=== PATIENT | male | born 1955 | race Caucasian/White ===

== ENCOUNTER 2022-02-13 09:52 | Outpatient (CLI) | payer MEDICARE, OTHER, SELFPAY ==
[2022-02-13 10:27] LABS: Hematocrit 39.3 % (42.0-52.0); Hemoglobin 13.3 g/dL (14.0-18.0); Mean Corpuscular HGB Conc 33.8 g/dl (32-36); Mean Corpuscular Volume 91.6 fl (80-100); Mean Platelet Volume 9.7 fl (7.4-10.4); Platelet Count Result 231 k/mm3 (150-375); Red Blood Count 4.29 M/mm3 (4.6-6.20); White Blood Count 6.7 K/mm3 (4.5-10.0)
[2022-02-13 10:37] LABS: Anion Gap 9 mmol/L (8-16); Blood Urea Nitrogen 11 mg/dL (9-20); Calcium 8.9 mg/dL (8.4-10.2); Carbon Dioxide 25 mmol/L (22-30); Chloride 106 mmol/L (98-107); Estimated Glomerular Filt Rate > 60; Glucose 131 mg/dL (65-110); Sodium 140 mmol/L (137-145)
== END 2022-02-13 09:53 | disposition home or self-care (01) ==
LOC: ANHSURGERY 10:00
PROVIDERS: Anesthesiology; PCP Family Medicine; Visit Provider Neurological Surgery
DX: Z01.812 Encounter for preprocedural laboratory examination (principal); M48.061 Spinal stenosis, lumbar region without neurogenic claudication; E11.9 Type 2 diabetes mellitus without complications
CPT/HCPCS: 36415; 80048; 85025

== ENCOUNTER 2022-02-20 14:33 | Inpatient (IN) | payer MEDICARE, OTHER, SELFPAY ==
[2022-02-08 13:23] VITALS: BMI 45.7
--- NOTE | 2022-02-08 13:52 | PC.NURSE ---
Report to the Outpatient Waiting Room, entrance under the green pavilion located off [facility], at time _0600_ on date _02/20/22_. OR Time: _0730_. - You and your visitor will be asked a series of questions to screen for COVID 19 for your protection. - Only one visitor is allowed at this time. - The patient visitor is requested to leave or wait in car when not with patient. - A mask is required within the hospital. Patients may have clear liquids (water, carbonated beverages, clear teas, apple juice) until 3 hours prior to surgery (0430 AM) with a maximum of 20 ounces. - No food from midnight until time of surgery Take the following medications with a SIP of water the morning of surgery: _CARVEDILOL, GABAPENTIN, PROPRANOLOL_ Medications to discontinue per DR. COY - PT STATES ALREADY STOPPING ASPIRIN AND PLAVIX ON 02/07/22 Please no make-up, nail gibraltarian, hairspray, perfume, deodorant, or body powder the day of surgery. No jewelry (including any body piercings) or valuables the day of surgery, leave them at home. Please take a shower or bath the night before, or the morning of, surgery with an antibacterial soap. Wear comfortable, loose fitting clothing. - Jewelry must be removed prior to entering the operating room. Rings and piercings that are not removed may be cut off. - The hospital will not accept responsibility for valuables. - Please leave all valuables, including medications, at home the day of surgery. If you are going home after surgery, a licensed fork truck driver must drive you home. - NO public transportation without another adult. - We recommend that an adult stay with you for 24 hours following discharge. - We also recommend that you do not drive, make important decision, drink alcoholic beverages, or take any drugs that were not prescribed by your health care provider for at least 24 hours after your discharge time. Follow any additional instructions given to you from your surgeon. If you or anyone in your household have experienced Covid symptoms in the past week, please notify your surgeon or the nurse liaison at the phone number below for possible testing. Telephone instructions given to ___PT and asked if any additional questions and then verbalized understanding. Patient advised to call surgeon office or pre surgery nurse liaison [phone] if any additional questions.
[2022-02-20] VITALS (17 sets, daily range): BP systolic 106–138; BP diastolic 55–74; PULSE 53–74; RESP 12–20; TEMP 36–36.7; O2SAT 96–99
--- NOTE | ~2022-02-20 | XR_ITS ---
EXAMINATION: XR fluoroscopy no charge DATE: 02/20/2022 7:30 CDT INDICATION: LUMBAR INTERBODY FUSION . TECHNIQUE: 2 fluoroscopic images of the lumbar spine were obtained during lumbar interbody fusion per formed by the surgeon. I was not present in the operating room. Fluoroscopy exposure time was 8.1 sec onds. Cumulative dose was 7.85 mGy. COMPARISON: None FINDINGS: Initial images document localization of the spinous process of a lumbar vertebral body, more inferior pedicle screws and skin retractors overlying the image. Pedicle screws then added at 2 additional le vels. IMPRESSION: Fluoroscopic documentation of lumbar interbody fusion. Please refer to the operative note for complet e procedural details. Reviewed, dictated and finalized at location K. IMPRESSION: Fluoroscopic documentation of lumbar interbody fusion. Please refer to the oper ative note for complete procedural details.
--- NOTE | ~2022-02-20 | CT_ITS ---
EXAMINATION: CT brain wo con DATE: 02/24/2022 23:48 INDICATION: Somnolent and mental status changes post lumbar fusion TECHNIQUE: Computed tomography (CT) of the head was performed without intravenous contrast. Sagittal and coronal reconstructions were performed. The mA was adjusted according to patient size. Iterative reconstruction technique was employed. The dose-length product was 681.00 mGy-cm. COMPARISON: None FINDINGS: No acute intracranial hemorrhage, acute infarction or abnormal extra axial fluid collection. Symmetri c prominence of the sulci and subarachnoid spaces overlying the convexities consistent with mild age- appropriate diffuse cerebral volume loss. Ventricles are normal and symmetric. No mass/mass effect. Mild mucoperiosteal thickening in the bilateral ethmoid and maxillary sinuses. The orbits and mastoid air cells are normal. IMPRESSION: 1. Normal aging brain. No acute intracranial process. Reviewed, dictated and finalized at location A.
--- NOTE | ~2022-02-20 | CT_ITS ---
EXAMINATION: CTA chest PE protocol DATE: 02/24/2022 23:49 INDICATION: Shortness of breath. Somnolence. TECHNIQUE: Computed tomography (CT) pulmonary angiogram of the chest was performed with 100 mL Omnipa que-350 intravenous contrast. Additional 3D reconstructions utilizing coronal maximum intensity proje ction (MIP) were performed. Automated exposure control and iterative reconstruction technique were em ployed. The dose-length product was 949.14 mGy-cm. COMPARISON: None FINDINGS: Suboptimal contrast opacification of the pulmonary arteries. There along with combination of streak a nd moderate scattered respiratory motion artifact significantly limits evaluation in the segmental an d subsegmental pulmonary arteries. No central pulmonary embolism through the lobar arteries. No pneum onia, pulmonary edema, pleural effusion or pneumothorax. Heart size is normal. No pericardial effusio n. Atherosclerotic coronary artery calcifications and possible stenting. Ectatic ascending thoracic a lucia measuring up to 4.0 cm in maximal diameter. No dissection. Mediastinal lipomatosis. No pathologi inessa enlarged thoracic lymphadenopathy. Diffuse hepatic steatosis. Cholecystectomy clips at the gall bladder fossa. There are bridging osteophytes at multiple levels in the spine, consistent with diffus e idiopathic skeletal hyperostosis (DISH). IMPRESSION: 1. No central pulmonary embolism through the lobar pulmonary arteries. More peripheral evaluation is essentially nondiagnostic due to suboptimal contrast bolus and combination of posttreatment and moder ate respiratory motion artifact. No other acute cardiopulmonary disease. Reviewed, dictated and finalized at location A. IMPRESSION: 1. No central pulmonary embolism through the lobar pulmonary arteries. More per ipheral evaluation is essentially nondiagnostic due to suboptimal contrast bolu s and combination of posttreatment and moderate respiratory motion artifact. No other acute cardiopulmonary disease.
--- NOTE | 2022-02-20 06:10 | ECG_ITS ---
Measurements Intervals Dresser Rate: 54 P: GA: 0 QRS: 59 QRSD: 98 T: 43 QT: 446 QTc: 423 Interpretive Statements SINUS BRADYCARDIA ATRIAL PREMATURE COMPLEXES BORDERLINE ECG Electronically Signed On 02-20-2022 8:01:15 CDT by Ervin Mendez D.O.
--- NOTE | 2022-02-20 06:47 | WPDANESEPPF ---
Anes - Initial Pre Proc Eval Procedure: Operation Date: 02/20/22 07:30 Proposed Procedures p L2-3, L3-4 Posterior Lumbar Interbody Fusion with Revision of Posterior Instrumentation at L5-S1 - Manjit Cavanaugh MD Date/Time: 02/20/22 06:47 Surgeon: Manjit Cavanaugh MD Pre Op Diagnosis: lumbar stenosis,lumbar spondylosis Patient Data Age: 67 Gender: M Height: 1.73 m Weight: 142.4 kg Last Vital Signs Temp 36.3 C L 02/20/22 06:33 Pulse 53 L 02/20/22 06:33 Resp 18 02/20/22 06:33 BP 126/64 02/20/22 06:33 Pulse Ox 97 02/20/22 06:33 O2 Del Method Room Air 02/20/22 06:33 Allergies Allergy/AdvReac Type Severity Reaction Status Date / Time No Known Allergies Allergy Unknown Unverified 02/20/22 05:59 Home Medications Medication Instructions Recorded Confirmed Type aspirin 81 mg capsule 81 mg PO QAM 02/08/22 02/08/22 History atorvastatin 20 mg tablet 1 tablet DAILY 02/08/22 02/20/22 History carvedilol 6.25 mg tablet 6.25 mg PO BID 02/08/22 02/20/22 History clopidogrel 75 mg tablet 1 tablet QA 02/08/22 02/08/22 History fenofibrate 160 mg tablet 1 tablet QAM 02/08/22 02/20/22 History gabapentin 300 mg capsule 600 mg TID 02/08/22 02/20/22 History insulin aspart U-100 100 unit/mL See Rx Instructions .Route .COMPLEX 02/08/22 02/20/22 History (3 mL) subcutaneous pen (Novolog Flexpen U-100 Insulin aspart) insulin detemir U-100 100 unit/mL See Rx Instructions .Route .COMPLEX 02/08/22 02/20/22 History (3 mL) subcutaneous pen (Levemir FlexTouch U-100 Insulin) lisinopril 20 mg tablet 1 tablet QAM 02/08/22 02/20/22 History metformin 500 mg tablet 2 tablet BID 02/08/22 02/20/22 History propranolol 20 mg tablet 2 tablet BID 02/08/22 02/20/22 History silodosin 4 mg capsule 1 cap QAM 02/08/22 02/20/22 History Patient hx anesthesia problems: none Family hx anesthesia problems: none Results Review: All pre-operative results and documents have been reviewed as part of the pre-operative evaluation. [facility] Past Medical History Medical History (Updated 02/20/22 @ 06:56 by Willis Piper MD) CAD (coronary artery disease) Diabetes HTN (hypertension) Hyperlipidemia Morbid obesity with BMI of 45.0-49.9, adult RAMESH on CPAP Osteoarthritis Peripheral neuropathy Surgical History Surgical History (Updated 02/20/22 @ 06:56 by Willis Piper MD) History of coronary artery stent placement Social History Social History Smoking status: Never smoker Second hand tobacco smoke exposure: No Alcohol intake: never Substance use: never Substance use type: does not use Living arrangements: with family Spiritual care concerns: No Anes - Eval Final PreProcedure Day of Procedure 02/20/22 06:47 Patient weight: morbidly obese Heart: regular rate and rhythm Lungs: clear to auscultation and normal air movement Airway: Mallampati scale class IV Neurological: alert and oriented Last oral intake: >/= 8 hours ASA classification: III Emergent: no Anesthetic plan: proceed Anesthesia type and monitoring: general ETT Results Review: All pre-operative results and documents have been reviewed as part of the pre-operative evaluation. Informed Consent: The patient's anesthetic plan and its attendant risks and benefits were discussed with the patient/family/POA. Questions were solicited and answers provided to the satisfaction of the patient/family/POA.
[2022-02-20 06:51] LABS: Glucose Point of Care 132 mg/dl (65-105)
[2022-02-20] MEDS: LACTATED RINGERS 1,000 ML 30 ML IV CONT ×3 (06:52→13:30)
--- NOTE | 2022-02-20 07:41 | PM.IMHP ---
H&P: HPI History of Present Illness Date/Time: 02/20/22 07:41 Chief Complaint: Back and leg pain Narrative: Jesus is a 67-year-old gentleman with back and leg pain that has undergone an L5-S1 posterior lumbar interbody fusion in the past and presents now for adjacent level L3-4 L4-5 fusion possibly L2-3 for junctional stenosis. He has not changed since we last saw him. He reports no new specific muscle group weakness. He reports no new bowel or bladder difficulty. He reports no new numbness. Review of Systems Review of Systems: Negative on 12 systems except as noted above. Morbid obesity. He denies chest pain, shortness of breath, cough, fever, chills, nausea, vomiting. [facility] Past Medical History Medical History CAD (coronary artery disease) Diabetes HTN (hypertension) Hyperlipidemia Morbid obesity with BMI of 45.0-49.9, adult RAMESH on CPAP Osteoarthritis Peripheral neuropathy Surgical History Surgical History History of coronary artery stent placement Social History Social History Smoking status: Never smoker Second hand tobacco smoke exposure: No Alcohol intake: never Substance use: never Substance use type: does not use Living arrangements: with family Spiritual care concerns: No Meds Home Medications and Allergies Home Medications Medication Instructions Recorded Confirmed Type aspirin 81 mg capsule 81 mg PO QAM 02/08/22 02/08/22 History atorvastatin 20 mg tablet 1 tablet DAILY 02/08/22 02/20/22 History carvedilol 6.25 mg tablet 6.25 mg PO BID 02/08/22 02/20/22 History clopidogrel 75 mg tablet 1 tablet QAM 02/08/22 02/08/22 History fenofibrate 160 mg tablet 1 tablet QAM 02/08/22 02/20/22 History gabapentin 300 mg capsule 600 mg TID 02/08/22 02/20/22 History insulin aspart U-100 100 unit/mL See Rx Instructions .Route .COMPLEX 02/08/22 02/20/22 History (3 mL) subcutaneous pen (Novolog Flexpen U-100 Insulin aspart) insulin detemir U-100 100 unit/mL See Rx Instructions .Route .COMPLEX 02/08/22 02/20/22 History (3 mL) subcutaneous pen (Levemir FlexTouch U-100 Insulin) lisinopril 20 mg tablet 1 tablet QAM 02/08/22 02/20/22 History metformin 500 mg tablet 2 tablet BID 02/08/22 02/20/22 History propranolol 20 mg tablet 2 tablet BID 02/08/22 02/20/22 History silodosin 4 mg capsule 1 cap QAM 02/08/22 02/20/22 History Allergies Allergy/AdvReac Type Severity Reaction Status Date / Time No Known Allergies Allergy Unknown Unverified 02/20/22 05:59 Vital Signs Vital Signs - 24 hr 02/20/22 06:33 Temperature 97.3 F L Pulse Rate 53 L Respiratory Rate 18 Blood Pressure 126/64 Pulse Oximetry 97 Oxygen Delivery Room Air Exam Narrative: The patient is a normally developed obese male supine in the hospital bed in no acute distress. He is awake, alert, oriented x3 with good fund of knowledge recall events and fluent speech. His face is symmetrical and his eyes were conjugate. He has no upper extremity drift, dysmetria or dyspraxia Strength is normal in the bilateral lower extremities in all muscle groups to direct confrontation. Sensation is intact to light touch throughout the lower extremities. Regular rate and rhythm Clear to auscultation Assessment and Plan Assessment and plan (1) Lumbar stenosis: Code(s): M48.061 - Spinal stenosis, lumbar region without neurogenic claudication Status: Acute (2) Lumbar spondylosis: Code(s): M47.816 - Spondylosis without myelopathy or radiculopathy, lumbar region Status: Acute Plan Jesus is a 67-year-old gentleman with back and leg pain related to the above pathology presents for L3-4 and L4-5 posterior lumbar interbody fusion with revision of posterior instrumentation at L5-S1. I again described to him that operation, it
--- NOTE | 2022-02-20 07:45 | WPDHPUPDATE1 ---
History and Physical Update Update Date/Time: 02/20/22 07:45 History and Physical has been reviewed, including an updated exam of the patient. There are NO changes in the patient's condition. Risks, benefits, and alternatives have been discussed and questions answered. Patient agrees to proceed with procedure.
[2022-02-20] MEDS: ceFAZolin 3 GM/D5W 100 ML 100 ML IVPB (08:05)
[2022-02-20] MEDS: LIDOCAINE/EPINEPHRINE 0.5%/1:200,000 50 ML VIAL INFILTRATE (08:40)
[2022-02-20] MEDS: HEMOSTATIC MATRIX (SURGIFLO with THROMBIN) KIT 1 KIT XX ×2 (11:07→11:08)
--- NOTE | 2022-02-20 12:04 | W.PM.PROC2 ---
Procedure Note - Detailed Date of Procedure 02/20/22 Pre-op Diagnosis lumbar stenosis,lumbar spondylosis Post-op Diagnosis Same Procedure Performed L3-4 and L4-5 posterior lumbar interbody fusion, L5-S1 revision of posterior instrumentation Surgeon Manjit Cavanaugh MD Assistant Professor Of Geography Darion Adames General Indications Jesus is a 67-year-old gentleman with back and leg pain related to spondylosis and stenosis who presents for decompression and fusion from a posterior approach at 2 levels adjacent to his previous operation at L5-S1. Findings Stenosis and spondylosis Description of Procedure Jesus was brought to the operating room in the supine position, was sedated, intubated and placed under general anesthesia in routine fashion. He was then turned into the prone position on a Parish frame. The area of operation on his back was examined, marked for incision, prepped and draped in routine sterile fashion. Incision was marked over the previous incision and extended up to the L2 spinous processes. This area was injected with 0.5% lidocaine with [id number] epinephrine. Intravenous antibiotics were given prior to incision. Incision was made with a 10 blade scalpel down to the lumbodorsal fascia. A subperiosteal dissection of the muscle and soft tissue away from the spinous process and lamina at L2-3 for was performed with a subperiosteal elevator and Bovie cautery. The instrumentation at L5-S1 was uncovered using Bovie cautery. A verifying x-rays obtained to verify the level of operation. The L3 and L4 spinous processes were removed with a Aleisha rongeur. Kerrison punches and curved curettes were used to remove bone in the midline and to the soft contents of the canal were encountered. A Midas Nick drill was used to resect the pars bilaterally. The this was done at L3 and L4. The inferior articular process of L3 and L4 could then be removed bilaterally. These post spinous processes were stripped free of soft tissue and morselized for later use as interbody autograft. Kerrison punches and curved curette were used to define a plane with the dura and removed bone and ligament flush with the pedicle and to widely decompress the exiting nerve roots. With the thecal sac retracted and protected the disc space was entered bilaterally at each level using 11 blade scalpel. Scrapers various sizes curettes of ears configurations, pituitary rongeur and a rasp were used to remove as much cartilaginous endplate and disc material as possible down to bleeding cortical flat surfaces on the opposing bones. The disc spaces were incised and 12 mm interbody devices were chosen for L3 for and 13 mm devices for L4-5. These were filled with local autograft bone. The disc space was likewise filled with local autograft bone. The interbody devices were then placed with 2-3 mm countersink within the disc space bilaterally. Pedicle screw instrumentation was performed at L3 and L4 by observing and palpating the pedicle wall a hole was made and superior articular process above the pedicle using a Midas Nick drill. The pedicle was then cannulated with a pedicle probe, checked for continuity with the ball probe, tapped with a 5.5 mm tap and a 6.5 x 50 mm screw was placed into each pedicle on each side. The caps at L5 and S1 removed as well as the timoteo. An 85 mm timoteo was then placed into the screw heads on either side and secured in position using the caps for that purpose. These are definitively tightened with the torque and anti torque device. The verifying x-rays obtained to verify placement of the instrumentation. Good placement was confirmed. The wound was then copiously irrigated with bacitracin irrigation all bleeding stopped with bipolar and Bovie cautery and Gelfoam thrombin powder. A medium Hemovac drain was left in the subfascial position. After the inferior and right of the incision. The wound was then closed in layered fashion with 2-0 Vicryl interrupted sutures in the
[2022-02-20 12:22] LABS: Glucose Point of Care 233 mg/dl (65-105)
[2022-02-20] MEDS: INSULIN HUMAN REGULAR (*BKC) 100 UNITS/ML SUB-Q (12:37)
[2022-02-20] MEDS: fentaNYL CITRATE INJ (*CRX) 100 MCG/2 ML VIAL 25 MCG IV PUSH ×6 (12:43→13:55)
--- NOTE | 2022-02-20 14:50 | ADMGEN ---
This patient, Jesus Early, was admitted to Medical Room 247-. Patient/family oriented to hospital policies and general routines including ID bracelet, bed and alarms, visiting hours, pain management, procedures, bathroom and other care routines, personal items, smoking policy, room service/diet, and visiting hours. Information on how to activate the Rapid Response Team has been discussed. Patient/Family are encouraged to report perceived risks to care and to ask questions if they do not understand what they are told or what they should do.
[2022-02-20] MEDS: GABAPENTIN 300 MG CAPSULE 600 MG BY MOUTH ×2 (15:22→17:40)
[2022-02-20 15:46] LABS: Glucose Point of Care 225 mg/dl (65-105)
--- NOTE | 2022-02-20 15:51 | PCPTNOTE ---
Attempted PT evaluation, Pt refused due to having too much pain. Will follow.
[2022-02-20] MEDS: HYDROmorphone HCL INJ (*CRX) 1 MG/ML SYR 0.5 MG IV PUSH ×2 (15:52→23:43)
--- NOTE | 2022-02-20 16:25 | PC.NURSE ---
Bus And Trolley Dispatcher called Pt [facility] pharmacy and verified pt current diabetes medications, Called and verfied with Dr. Morrow office and requested list of diabetes medication records which was received and placed in pt chart, and verified with Dr. Cavanaugh he wishes for pt to received high dose insulins as pt takes at home, and duplicate beta blockers Dr. Cavanaugh report yes wants medications to continue as pt takes at home newswriter triple verified with pt and current insulin and beta seema regime listed is what pt takes this all was report to pharmacy per there request for further clarifications.
--- NOTE | 2022-02-20 17:03 | PHAR ---
VERIFIED WITH RN LEVEMIR 70 UNITS BID, NOVOLOG 60 UNITS BID (BREAKFAST AND DINNER), PLUS NOVOLOG SLIDING SCALE. RN VERIFIED WITH PATIENT'S MACHINE CAPTAIN
[2022-02-20] MEDS: KCL 20 MEQ/D5/0.45% SOD CHL 1,000 ML 100 ML IV CONT (17:31)
[2022-02-20] MEDS: ONDANSETRON INJ 4 MG/2 ML VIAL IV PUSH (17:32)
[2022-02-20] MEDS: PROPRANOLOL HCL 40 MG TABLET BY MOUTH (17:41)
[2022-02-20] MEDS: metFORMIN HCL 500 MG TABLET 1000 MG BY MOUTH (17:42)
[2022-02-20] MEDS: carvediloL 6.25 MG TABLET PO (17:42)
[2022-02-20] MEDS: INSULIN ASPART (*BKC) 100 UNITS/ML 60 UNITS SUB-Q (17:46)
[2022-02-20] MEDS: HYDROcodone/acetaminophen (*CRX) 10-325 MG TABLET 1 TAB PO (22:04)
[2022-02-20] MEDS: DOCUSATE SODIUM 100 MG CAPSULE PO (22:05)
[2022-02-20] MEDS: INSULIN GLARGINE (*BKC) 100 UNITS/ML 70 UNITS SUB-Q (22:21)
[2022-02-20] MEDS: WATER FOR IRRIGATION, STERILE 1,000 ML BOTTLE 1000 ML (22:22)
[2022-02-20 22:50] LABS: Glucose Point of Care 172 mg/dl (65-105)
[2022-02-21] VITALS (15 sets, daily range): BP systolic 100–133; BP diastolic 42–58; PULSE 68–84; RESP 17–24; TEMP 35.9–37.9; O2SAT 92–96
[2022-02-21 00:46] LABS: Hematocrit 32.6 % (42.0-52.0); Hemoglobin 10.7 g/dL (14.0-18.0)
[2022-02-21] MEDS: HYDROcodone/acetaminophen (*CRX) 5-325 MG TABLET 1 TAB PO (00:57)
[2022-02-21] MEDS: HYDROcodone/acetaminophen (*CRX) 10-325 MG TABLET 1 TAB PO ×4 (03:19→18:36)
[2022-02-21] MEDS: HYDROmorphone HCL INJ (*CRX) 1 MG/ML SYR 0.5 MG IV PUSH (05:07)
[2022-02-21] MEDS: KCL 20 MEQ/D5/0.45% SOD CHL 1,000 ML 30 ML IV CONT ×2 (06:32→13:00)
[2022-02-21 07:23] LABS: Glucose Point of Care 209 mg/dl (65-105)
[2022-02-21] MEDS: INSULIN ASPART (*BKC) 100 UNITS/ML SUB-Q ×3 (07:37→16:42)
[2022-02-21] MEDS: DOCUSATE SODIUM 100 MG CAPSULE PO ×2 (08:45→21:11)
[2022-02-21] MEDS: SENNA/DOCUSATE SODIUM TABLET 1 TAB PO (08:46)
[2022-02-21] MEDS: FENOFIBRATE 160 MG TABLET BY MOUTH (08:46)
[2022-02-21] MEDS: PROPRANOLOL HCL 40 MG TABLET BY MOUTH ×2 (08:46→16:31)
[2022-02-21] MEDS: metFORMIN HCL 500 MG TABLET 1000 MG BY MOUTH ×2 (08:46→16:30)
[2022-02-21] MEDS: lisinopriL 20 MG TABLET BY MOUTH (08:47)
[2022-02-21] MEDS: ATORVASTATIN 20 MG TABLET BY MOUTH (08:47)
[2022-02-21] MEDS: carvediloL 6.25 MG TABLET PO ×2 (08:47→16:29)
[2022-02-21] MEDS: GABAPENTIN 300 MG CAPSULE 600 MG BY MOUTH ×3 (08:47→16:30)
[2022-02-21] MEDS: INSULIN GLARGINE (*BKC) 100 UNITS/ML 70 UNITS SUB-Q ×2 (08:48→21:11)
[2022-02-21] MEDS: INSULIN ASPART (*BKC) 100 UNITS/ML 60 UNITS SUB-Q ×2 (08:48→16:41)
--- NOTE | 2022-02-21 09:20 | WPDPN ---
Progress Note: A&P Assessment and Plan (1) Lumbar spondylosis: Code(s): M47.816 - Spondylosis without myelopathy or radiculopathy, lumbar region Status: Acute (2) Lumbar stenosis: Code(s): M48.061 - Spinal stenosis, lumbar region without neurogenic claudication Status: Acute Plan Jesus is doing well postop day 1 status post L3-4 L4-5 posterior lumbar interbody fusion. He will work with physical and occupational therapy today towards progressive activity. We will try to wean his IV pain medication. I believe his drain in until tomorrow. Subjective Date/time seen: 02/21/22 09:20 The patient Is postop day 1 status post L3-4 and L4-5 posterior lumbar interbody fusion. He is doing well. He has expected soreness in his operative site. He is having no new issues in his lower extremities. He is about to work with physical therapy. Exam Narrative: strength appears to be normal in the bilateral lower extremities direct confrontation in all muscle groups. Sensation is intact to light touch throughout the lower extremities. Dressing is clean dry and intact. Objective Data Vital Signs Vital Signs: Vital Signs - 24 hr 02/20/22 12:13 02/20/22 12:25 02/20/22 12:40 Temperature 98.0 F Pulse Rate 68 62 63 Respiratory Rate 17 12 12 Blood Pressure 111/57 L 106/59 L 121/55 L Pulse Oximetry 97 99 96 Oxygen Delivery Simple Face Mask Simple Face Mask Room Air Oxygen Flow Rate 8 8 02/20/22 12:55 02/20/22 13:10 02/20/22 13:25 Temperature Pulse Rate 59 L 59 L 54 L Respiratory Rate 12 20 20 Blood Pressure 121/67 115/69 116/66 Pulse Oximetry 98 97 98 Oxygen Delivery Nasal Cannula Nasal Cannula Nasal Cannula Oxygen Flow Rate 2 2 2 02/20/22 13:40 02/20/22 13:55 02/20/22 14:10 Temperature Pulse Rate 60 56 L 65 Respiratory Rate 20 16 14 Blood Pressure 127/62 120/63 122/58 L Pulse Oximetry 96 97 98 Oxygen Delivery Nasal Cannula Nasal Cannula Nasal Cannula Oxygen Flow Rate 2 2 2 02/20/22 14:25 02/20/22 14:50 02/20/22 15:05 Temperature 96.8 F L 97.1 F L Pulse Rate 64 74 63 Respiratory Rate 12 18 18 Blood Pressure 115/66 126/61 114/60 Pulse Oximetry 98 97 98 Oxygen Delivery Nasal Cannula Oxygen Flow Rate 2 02/20/22 15:35 02/20/22 16:35 02/20/22 16:37 Temperature 97.8 F 97.8 F Pulse Rate 60 65 Respiratory Rate 16 18 Blood Pressure 121/62 138/74 Pulse Oximetry 96 98 Oxygen Delivery Room Air Oxygen Flow Rate 02/20/22 19:11 02/20/22 23:21 02/21/22 00:35 Temperature 97.1 F L 98.8 F Pulse Rate 63 64 68 Respiratory Rate 17 17 Blood Pressure 127/56 L 133/53 L Pulse Oximetry 98 97 94 Oxygen Delivery CPAP Oxygen Flow Rate 02/21/22 02:40 02/21/22 03:30 02/21/22 03:38 Temperature 98.8 F Pulse Rate 69 84 Respiratory Rate 18 Blood Pressure 100/52 L 108/58 L Pulse Oximetry 95 92 Oxygen Delivery CPAP Oxygen Flow Rate 02/21/22 08:07 02/21/22 08:46 02/21/22 08:47 Temperature Pulse Rate 83 83 Respiratory Rate Blood Pressure Pulse Oximetry Oxygen Delivery Room Air Oxygen Flow Rate 02/21/22 09:02 Temperature Pulse Rate 83 Respiratory Rate Blood Pressure Pulse Oximetry Oxygen Delivery Room Air Oxygen Flow Rate Intake/Output Intake/Output: Intake & Output 02/18/22 02/19/22 02/20/22 02/21/22 23:59 23:59 23:59 23:59 Intake Total 3590 1710 Output Total 400 680 Balance 3190 1030 Meds/Results Medications: Active Medications Generic Name Dose Route Start Last Admin Trade Name Freq PRN Reason Stop Dose Admin Hydrocodone Bitart/Acetaminophen 1 tab 02/20/22 14:33 02/21/22 00:57 Hydrocodone/Acetaminophen (*Crx) 5-325 Mg Tablet PO 1 tab Q4H PRN Administration Mild Pain (1-3) Hydrocodone Bitart/Acetaminophen 1 tab 02/20/22 14:33 02/21/22 07:35 Hydrocodone/Acetaminophen (*Crx) 10-325 Mg Tablet PO 1 tab Q4H PRN Administration Moderate Pain (4-6) Al
--- NOTE | 2022-02-21 10:28 | WPDANESPN ---
Anes - Prog Note Post-Op Date/Time: 02/21/22 10:28 Cardiovascular status: normal Respiratory status: normal Airway patency: baseline Mental status: baseline Post-Op hydration status: normal Vital Signs: Last Vital Signs Temp 37.1 C 02/21/22 03:30 Pulse 83 02/21/22 09:02 Resp 18 02/21/22 03:30 BP 108/58 L 02/21/22 03:38 Pulse Ox 92 02/21/22 03:30 O2 Del Method Room Air 02/21/22 09:02 O2 Flow Rate 2 02/20/22 14:25 Pain Score (VAS): 2 I/O: Intake & Output 02/20/22 02/21/22 02/21/22 23:59 07:59 15:59 Intake Total 790 1350 360 Output Total 320 680 Balance 470 670 360 Laboratory Tests 02/21/22 00:39 02/20/22 02/20/22 02/20/22 12:20 15:42 22:12 Hgb Hct POC Capillary Glucose 233 H 225 H 172 H 02/21/22 02/21/22 00:39 07:20 Hgb 10.7 L Hct 32.6 L POC Capillary Glucose 209 H Post-procedural complaints: none Patient Feedback: Patient satisfied with anesthetic care.
[2022-02-21 11:27] LABS: Glucose Point of Care 244 mg/dl (65-105)
--- NOTE | 2022-02-21 12:31 | PHAR ---
HOME MEDICATION VERIFIED BY PHARMACY: SILODOSIN 4MG CAPSULES TAKE 1 CAPSULE PO EVERY DAY [id number]
[2022-02-21 16:31] LABS: Glucose Point of Care 183 mg/dl (65-105)
[2022-02-21 21:34] LABS: Glucose Point of Care 180 mg/dl (65-105)
[2022-02-22] VITALS (13 sets, daily range): BP systolic 100–130; BP diastolic 43–68; PULSE 56–92; RESP 16–20; TEMP 36.6–38; O2SAT 93–97
[2022-02-22] MEDS: HYDROcodone/acetaminophen (*CRX) 10-325 MG TABLET 1 TAB PO ×3 (02:56→20:52)
[2022-02-22 08:10] LABS: Glucose Point of Care 204 mg/dl (65-105)
[2022-02-22] MEDS: INSULIN GLARGINE (*BKC) 100 UNITS/ML 70 UNITS SUB-Q ×2 (08:37→20:51)
[2022-02-22] MEDS: INSULIN ASPART (*BKC) 100 UNITS/ML 60 UNITS SUB-Q ×2 (08:39→16:53)
[2022-02-22] MEDS: INSULIN ASPART (*BKC) 100 UNITS/ML SUB-Q ×2 (08:39→11:52)
[2022-02-22] MEDS: carvediloL 6.25 MG TABLET PO ×2 (08:42→16:52)
[2022-02-22] MEDS: metFORMIN HCL 500 MG TABLET 1000 MG BY MOUTH ×2 (08:42→16:52)
[2022-02-22] MEDS: SENNA/DOCUSATE SODIUM TABLET 1 TAB PO (08:43)
[2022-02-22] MEDS: GABAPENTIN 300 MG CAPSULE 600 MG BY MOUTH ×3 (08:43→16:51)
[2022-02-22] MEDS: lisinopriL 20 MG TABLET BY MOUTH (08:43)
[2022-02-22] MEDS: DOCUSATE SODIUM 100 MG CAPSULE PO ×2 (08:43→20:53)
[2022-02-22] MEDS: ATORVASTATIN 20 MG TABLET BY MOUTH (08:43)
[2022-02-22] MEDS: FENOFIBRATE 160 MG TABLET BY MOUTH (08:43)
[2022-02-22] MEDS: PROPRANOLOL HCL 40 MG TABLET BY MOUTH ×2 (08:43→16:51)
[2022-02-22] MEDS: HYDROmorphone HCL INJ (*CRX) 1 MG/ML SYR 0.5 MG IV PUSH (08:47)
[2022-02-22 11:47] LABS: Glucose Point of Care 229 mg/dl (65-105)
[2022-02-22] MEDS: KCL 20 MEQ/D5/0.45% SOD CHL 1,000 ML 30 ML IV CONT ×2 (12:03→20:49)
--- NOTE | 2022-02-22 12:37 | WPDPN ---
Progress Note: A&P Assessment and Plan (1) Lumbar spondylosis: Code(s): M47.816 - Spondylosis without myelopathy or radiculopathy, lumbar region Status: Acute (2) Lumbar stenosis: Code(s): M48.061 - Spinal stenosis, lumbar region without neurogenic claudication Status: Acute Plan Jesus is doing well and progressing, albeit slowly. I removed is drained today. He will continue to work with physical and occupational therapy towards independent transfers and ambulation. Subjective Date/time seen: 02/22/22 12:37 Mr. Early is doing better today. He is postop day 2 status post two-level posterior lumbar interbody fusion. He is still not making transfers independently. His walking has been better but still limited. He does not report any new problems in his lower extremities. Exam Narrative: Strength and sensation appear to be normal in the bilateral lower extremities to direct confrontation His dressing is clean dry and intact. Objective Data Vital Signs Vital Signs: Vital Signs - 24 hr 02/21/22 14:00 02/21/22 16:29 02/21/22 16:31 Temperature 96.7 F L Pulse Rate 71 77 77 Respiratory Rate 20 Blood Pressure 108/54 L Pulse Oximetry 96 Oxygen Delivery 02/21/22 17:27 02/21/22 21:50 02/21/22 22:14 Temperature 97.5 F L 100.2 F H 99.5 F Pulse Rate 77 75 Respiratory Rate 24 H 18 Blood Pressure 117/45 L 111/42 L Pulse Oximetry 95 94 Oxygen Delivery 02/22/22 01:11 02/21/22 21:17 02/22/22 03:28 Temperature 99.2 F Pulse Rate 69 73 63 Respiratory Rate 16 Blood Pressure 100/43 L Pulse Oximetry 93 94 94 Oxygen Delivery CPAP CPAP 02/22/22 06:36 02/22/22 07:50 02/22/22 08:42 Temperature 98.0 F Pulse Rate 63 79 Respiratory Rate 16 Blood Pressure 130/61 Pulse Oximetry 96 Oxygen Delivery CPAP 02/22/22 08:43 Temperature Pulse Rate 79 Respiratory Rate Blood Pressure Pulse Oximetry Oxygen Delivery Intake/Output Intake/Output: Intake & Output 02/19/22 02/20/22 02/21/22 02/22/22 23:59 23:59 23:59 23:59 Intake Total 3590 3540 2100 Output Total 400 770 80 Balance 3190 2770 2019 Meds/Results Medications: Active Medications Generic Name Dose Route Start Last Admin Trade Name Freq PRN Reason Stop Dose Admin Hydrocodone Bitart/Acetaminophen 1 tab 02/20/22 14:33 02/21/22 00:57 Hydrocodone/Acetaminophen (*Crx) 5-325 Mg Tablet PO 1 tab Q4H PRN Administration Mild Pain (1-3) Hydrocodone Bitart/Acetaminophen 1 tab 02/20/22 14:33 02/22/22 06:48 Hydrocodone/Acetaminophen (*Crx) 10-325 Mg Tablet PO 1 tab Q4H PRN Administration Moderate Pain (4-6) Al Hydrox/Mg Hydrox/Simethicone 20 ml 02/20/22 14:33 Mag Hydrox/Al Hydrox/Simeth 30 Ml Udc PO Q4H PRN Indigestion/Heartburn Atorvastatin Calcium 20 mg 02/21/22 09:00 02/22/22 08:43 Atorvastatin 20 Mg Tablet BY MOUTH 20 mg DAILY LINDSEY Administration Bisacodyl 10 mg 02/20/22 14:33 Bisacodyl 10 Mg Suppository RECTAL DAILY PRN Constipation Carvedilol 6.25 mg 02/20/22 17:00 02/22/22 08:42 Carvedilol 6.25 Mg Tablet PO 6.25 mg BID LINDSEY Administration Cyclobenzaprine HCl 10 mg 02/20/22 14:33 Cyclobenzaprine Hcl 10 Mg Tablet PO TID PRN Muscle Spasms Dextrose 12.5 gm 02/20/22 17:05 Dextrose 50% 25 Gm/50 Ml Syringe IV PUSH PRN PRN Hypoglycemia Protocol Docusate Sodium 100 mg 02/20/22 21:00 02/22/22 08:43 Docusate Sodium 100 Mg Capsule PO 100 mg Q12HR LINDSEY Administration Fenofibrate 160 mg 02/21/22 09:00 02/22/22 08:43 Fenofibrate 160 Mg Tablet BY MOUTH 160 mg QAM LINDSEY Administration Gabapentin 600 mg 02/20/22 14:33 02/22/22 12:02 Gabapentin 300 Mg Capsule BY MOUTH 600 mg TID LINDSEY Administration Glucagon 1 mg 02/20/22 17:05 Glucagon For Inj 1 Mg Vial IM PRN PRN Hypoglycemia Protocol Glucose 15 gm 02/20/22 17:05
[2022-02-22 16:47] LABS: Glucose Point of Care 173 mg/dl (65-105)
[2022-02-22 20:59] LABS: Glucose Point of Care 123 mg/dl (65-105)
[2022-02-23] VITALS (9 sets, daily range): BP systolic 106–149; BP diastolic 45–69; PULSE 63–80; RESP 16–22; TEMP 37.1–37.3; O2SAT 92–99
[2022-02-23] MEDS: HYDROcodone/acetaminophen (*CRX) 10-325 MG TABLET 1 TAB PO ×4 (02:28→21:25)
[2022-02-23 07:58] LABS: Glucose Point of Care 150 mg/dl (65-105)
[2022-02-23] MEDS: FENOFIBRATE 160 MG TABLET BY MOUTH (08:10)
[2022-02-23] MEDS: DOCUSATE SODIUM 100 MG CAPSULE PO ×2 (08:10→21:09)
[2022-02-23] MEDS: metFORMIN HCL 500 MG TABLET 1000 MG BY MOUTH ×2 (08:10→16:26)
[2022-02-23] MEDS: GABAPENTIN 300 MG CAPSULE 600 MG BY MOUTH ×3 (08:10→16:26)
[2022-02-23] MEDS: ATORVASTATIN 20 MG TABLET BY MOUTH (08:10)
[2022-02-23] MEDS: lisinopriL 20 MG TABLET BY MOUTH (08:10)
[2022-02-23] MEDS: PROPRANOLOL HCL 40 MG TABLET BY MOUTH ×2 (08:10→16:26)
[2022-02-23] MEDS: carvediloL 6.25 MG TABLET PO ×2 (08:10→16:26)
[2022-02-23] MEDS: INSULIN GLARGINE (*BKC) 100 UNITS/ML 70 UNITS SUB-Q ×2 (08:12→21:16)
[2022-02-23] MEDS: INSULIN ASPART (*BKC) 100 UNITS/ML 60 UNITS SUB-Q ×2 (08:13→16:26)
[2022-02-23] MEDS: INSULIN ASPART (*BKC) 100 UNITS/ML SUB-Q (08:14)
--- NOTE | 2022-02-23 09:15 | PM.PNGS ---
Progress Note: A&P Assessment and Plan (1) Lumbar spondylosis: Code(s): M47.816 - Spondylosis without myelopathy or radiculopathy, lumbar region Status: Acute Plan Patinet continues to improve slowly. Continue to work on mobilization. Needing oral pain meds but decreased need for IV pain meds. Working with PT. Anticipate d/c tomorrow Time Spent With Patient Time: 15m Subjective Subjective Date/Time Seen: 02/23/22 09:15 Exam Narrative: Awake, alert oriented x 3 Speech CF DURGA EOMI Face= TML MAEW with good strength Dressing / incision CDI Objective Data Vital Signs Vital Signs: Vital Signs - 24 hr 02/22/22 11:30 02/22/22 15:32 02/22/22 16:51 Temperature 98.1 F 100.4 F H Pulse Rate 56 L 74 92 Respiratory Rate 16 16 Blood Pressure 100/49 L 124/55 L Pulse Oximetry 96 96 Oxygen Delivery 02/22/22 16:52 02/22/22 17:04 02/22/22 18:40 Temperature 98.9 F 97.8 F Pulse Rate 92 68 Respiratory Rate 16 Blood Pressure 124/68 Pulse Oximetry 97 Oxygen Delivery 02/22/22 21:34 02/22/22 22:59 02/23/22 02:41 Temperature 99.7 F H Pulse Rate 60 66 63 Respiratory Rate 20 Blood Pressure 115/50 L Pulse Oximetry 95 94 94 Oxygen Delivery CPAP CPAP 02/23/22 02:47 02/23/22 07:45 02/23/22 08:10 Temperature 98.8 F Pulse Rate 69 76 Respiratory Rate 20 Blood Pressure 124/54 L Pulse Oximetry 98 Oxygen Delivery CPAP 02/23/22 08:10 Temperature Pulse Rate 76 Respiratory Rate Blood Pressure Pulse Oximetry Oxygen Delivery Intake/Output Intake/Output: Intake & Output 02/20/22 02/21/22 02/22/22 02/23/22 23:59 23:59 23:59 23:59 Intake Total 3590 3540 3840 290 Output Total 400 770 80 Balance 3190 2770 3760 290 Meds/Results Medications: Active Medications Generic Name Dose Route Start Last Admin Trade Name Freq PRN Reason Stop Dose Admin Hydrocodone Bitart/Acetaminophen 1 tab 02/20/22 14:33 02/21/22 00:57 Hydrocodone/Acetaminophen (*Crx) 5-325 Mg Tablet PO 1 tab Q4H PRN Administration Mild Pain (1-3) Hydrocodone Bitart/Acetaminophen 1 tab 02/20/22 14:33 02/23/22 08:20 Hydrocodone/Acetaminophen (*Crx) 10-325 Mg Tablet PO 1 tab Q4H PRN Administration Moderate Pain (4-6) Al Hydrox/Mg Hydrox/Simethicone 20 ml 02/20/22 14:33 Mag Hydrox/Al Hydrox/Simeth 30 Ml Udc PO Q4H PRN Indigestion/Heartburn Atorvastatin Calcium 20 mg 02/21/22 09:00 02/23/22 08:10 Atorvastatin 20 Mg Tablet BY MOUTH 20 mg DAILY LINDSEY Administration Bisacodyl 10 mg 02/20/22 14:33 Bisacodyl 10 Mg Suppository RECTAL DAILY PRN Constipation Carvedilol 6.25 mg 02/20/22 17:00 02/23/22 08:10 Carvedilol 6.25 Mg Tablet PO 6.25 mg BID LINDSEY Administration Cyclobenzaprine HCl 10 mg 02/20/22 14:33 Cyclobenzaprine Hcl 10 Mg Tablet PO TID PRN Muscle Spasms Dextrose 12.5 gm 02/20/22 17:05 Dextrose 50% 25 Gm/50 Ml Syringe IV PUSH PRN PRN Hypoglycemia Protocol Docusate Sodium 100 mg 02/20/22 21:00 02/23/22 08:10 Docusate Sodium 100 Mg Capsule PO 100 mg Q12HR LINDSEY Administration Fenofibrate 160 mg 02/21/22 09:00 02/23/22 08:10 Fenofibrate 160 Mg Tablet BY MOUTH 160 mg QAM LINDSEY Administration Gabapentin 600 mg 02/20/22 14:33 02/23/22 08:10 Gabapentin 300 Mg Capsule BY MOUTH 600 mg TID LINDSEY Administration Glucagon 1 mg 02/20/22 17:05 Glucagon For Inj 1 Mg Vial IM PRN PRN Hypoglycemia Protocol Glucose 15 gm 02/20/22 17:05 Glucose Oral Gel 15 Gm Of Glucse In 37.5 Gm Tube PO PRN PRN Hypoglycemia Protocol Home Med 1 each 02/21/22 09:00 02/23/22 08:21 Silodosin 4 Mg Capsule (Home Med) PO 03/23/22 08:59 1 each QAM LINDSEY Administration Hydromorphone HCl 0.5 mg 02/20/22 14:33 02/22/22 08:47 Hydromorphone Hcl Inj (*Crx) 1 Mg/Ml Syr IV PUSH 0.5 mg Q2H PRN Administration Pain Rat
[2022-02-23 11:30] LABS: Glucose Point of Care 126 mg/dl (65-105)
--- NOTE | 2022-02-23 11:40 | PCCCNOTE ---
On 02/23/22, the student, [Roxane Prescott ], provided care and completed [facility] documentation on this patient. I have reviewed the student's documentation and agree with the findings.
--- NOTE | 2022-02-23 11:45 | PCOTNOTE ---
Attempted to see pt this AM at 11:37 for Occupational therapy tx. Due to increase fatigue, falling asleep while speaking with therapist, and wanting to eat lunch prior to completing therapy, pt declined to participate in therapy with pt's in agreement of pt's wish. Will continue per poc duration/frequency tomorrow.
[2022-02-23 14:08] LABS: Glucose Point of Care 120 mg/dl (65-105)
--- NOTE | 2022-02-23 16:20 | PCPTNOTE ---
PT returned to see patient this afternoon to continue treatment from A.M. since participation was limited at that time. Patient motivated and wanted to walk this afternoon. Patient performed bed mobility demonstrating proper log rolling and side lying to sitting technique. Patient transferred sit to stand SBA needing extra time to achieve full stance due to pain in low back. Patient began to ambulate and stopped after ~ 3ft stating he was not able to walk further due to pain in anterior thighs and low back. Patient able to perform bilateral ankle plantarflexion, dorsiflexion, knee extension, and hip flexion. PT will continue to follow.
[2022-02-23 16:45] LABS: Glucose Point of Care 118 mg/dl (65-105)
[2022-02-23 21:15] LABS: Glucose Point of Care 108 mg/dl (65-105)
[2022-02-23] MEDS: CYCLOBENZAPRINE HCL 10 MG TABLET PO (21:25)
[2022-02-23] MEDS: HYDROmorphone HCL INJ (*CRX) 1 MG/ML SYR 0.5 MG IV PUSH (22:15)
[2022-02-24] VITALS (11 sets, daily range): BP systolic 102–133; BP diastolic 51–62; PULSE 58–78; RESP 18–22; TEMP 36.8–37.6; O2SAT 94–98
[2022-02-24] MEDS: HYDROcodone/acetaminophen (*CRX) 10-325 MG TABLET 1 TAB PO ×4 (02:25→17:59)
[2022-02-24 03:41] LABS: Glucose Point of Care 139 mg/dl (65-105)
[2022-02-24] MEDS: KCL 20 MEQ/D5/0.45% SOD CHL 1,000 ML 30 ML IV CONT (04:05)
[2022-02-24 07:53] LABS: Glucose Point of Care 142 mg/dl (65-105)
[2022-02-24] MEDS: carvediloL 6.25 MG TABLET PO ×2 (08:17→16:14)
[2022-02-24] MEDS: metFORMIN HCL 500 MG TABLET 1000 MG BY MOUTH ×2 (08:17→16:14)
[2022-02-24] MEDS: lisinopriL 20 MG TABLET BY MOUTH (08:17)
[2022-02-24] MEDS: PROPRANOLOL HCL 40 MG TABLET BY MOUTH ×2 (08:17→16:14)
[2022-02-24] MEDS: ATORVASTATIN 20 MG TABLET BY MOUTH (08:18)
[2022-02-24] MEDS: DOCUSATE SODIUM 100 MG CAPSULE PO ×2 (08:18→20:23)
[2022-02-24] MEDS: FENOFIBRATE 160 MG TABLET BY MOUTH (08:18)
[2022-02-24] MEDS: GABAPENTIN 300 MG CAPSULE 600 MG BY MOUTH ×3 (08:18→16:13)
[2022-02-24] MEDS: INSULIN GLARGINE (*BKC) 100 UNITS/ML 70 UNITS SUB-Q ×2 (08:19→20:24)
[2022-02-24] MEDS: INSULIN ASPART (*BKC) 100 UNITS/ML 60 UNITS SUB-Q ×2 (08:25→16:18)
[2022-02-24 11:36] LABS: Glucose Point of Care 199 mg/dl (65-105)
--- NOTE | 2022-02-24 13:05 | WPDPN ---
Progress Note: A&P Assessment and Plan (1) Lumbar spondylosis: Code(s): M47.816 - Spondylosis without myelopathy or radiculopathy, lumbar region Status: Acute (2) Lumbar stenosis: Code(s): M48.061 - Spinal stenosis, lumbar region without neurogenic claudication Status: Acute Plan Jesus is doing it a better from the standpoint of ambulation and pain control but is somewhat somnolent. I will obtain a CT scan of the chest with contrast to make sure that he does not have a PE. Will also scan the brain. He should otherwise continue activity with occupational and physical therapy. Subjective Date/time seen: 02/24/22 13:05 Jesus is postop day 4 status post 2 level posterior lumbar interbody fusion. He has made progress with reanimation. He is apparently making transfers and ambulating independently. He has been sleepy or somnolent for the last couple of days for unknown reasons. Upon questioning he says that he is somewhat short of breath. He denies pain anywhere but in his back. He has had a low-grade fever which seems to be better today. He has been using his incentive spirometer more strictly. He does not report new neurologic issues or bowel or bladder issues. Objective Data Vital Signs Vital Signs: Vital Signs - 24 hr 02/23/22 14:00 02/23/22 16:26 02/23/22 16:26 Temperature 99.1 F Pulse Rate 65 76 76 Respiratory Rate 18 Blood Pressure 106/61 Pulse Oximetry 92 Oxygen Delivery 02/23/22 18:00 02/23/22 21:33 02/24/22 03:29 Temperature 99.1 F 98.8 F 98.2 F Pulse Rate 66 80 73 Respiratory Rate 18 22 H 20 Blood Pressure 114/47 L 149/69 H 118/51 L Pulse Oximetry 93 99 96 Oxygen Delivery 02/23/22 22:25 02/24/22 03:45 02/24/22 08:17 Temperature Pulse Rate 75 68 68 Respiratory Rate Blood Pressure Pulse Oximetry 98 98 Oxygen Delivery CPAP CPAP 02/24/22 08:17 02/24/22 08:00 Temperature Pulse Rate 68 68 Respiratory Rate 20 Blood Pressure Pulse Oximetry 98 Oxygen Delivery CPAP Intake/Output Intake/Output: Intake & Output 02/21/22 02/22/22 02/23/22 02/24/22 23:59 23:59 23:59 23:59 Intake Total 3540 3840 1070 1600 Output Total 770 80 200 300 Balance 2770 3760 870 1300 Meds/Results Medications: Active Medications Generic Name Dose Route Start Last Admin Trade Name Freq PRN Reason Stop Dose Admin Hydrocodone Bitart/Acetaminophen 1 tab 02/20/22 14:33 02/21/22 00:57 Hydrocodone/Acetaminophen (*Crx) 5-325 Mg Tablet PO 1 tab Q4H PRN Administration Mild Pain (1-3) Hydrocodone Bitart/Acetaminophen 1 tab 02/20/22 14:33 02/24/22 08:31 Hydrocodone/Acetaminophen (*Crx) 10-325 Mg Tablet PO 1 tab Q4H PRN Administration Moderate Pain (4-6) Al Hydrox/Mg Hydrox/Simethicone 20 ml 02/20/22 14:33 Mag Hydrox/Al Hydrox/Simeth 30 Ml Udc PO Q4H PRN Indigestion/Heartburn Atorvastatin Calcium 20 mg 02/21/22 09:00 02/24/22 08:18 Atorvastatin 20 Mg Tablet BY MOUTH 20 mg DAILY LINDSEY Administration Bisacodyl 10 mg 02/20/22 14:33 Bisacodyl 10 Mg Suppository RECTAL DAILY PRN Constipation Carvedilol 6.25 mg 02/20/22 17:00 02/24/22 08:17 Carvedilol 6.25 Mg Tablet PO 6.25 mg BID LINDSEY Administration Cyclobenzaprine HCl 10 mg 02/20/22 14:33 02/23/22 21:25 Cyclobenzaprine Hcl 10 Mg Tablet PO 10 mg TID PRN Administration Muscle Spasms Dextrose 12.5 gm 02/20/22 17:05 Dextrose 50% 25 Gm/50 Ml Syringe IV PUSH PRN PRN Hypoglycemia Protocol Docusate Sodium 100 mg 02/20/22 21:00 02/24/22 08:18 Docusate Sodium 100 Mg Capsule PO 100 mg Q12HR LINDSEY Administration Fenofibrate 160 mg 02/21/22 09:00 02/24/22 08:18 Fenofibrate 160 Mg Tablet BY MOUTH 160 mg QAM LINDSEY Administration Gabapentin 600 mg 02/20/22 14:33 02/24/22 08:18 Gabapentin 300 Mg Capsule BY MOUTH 600 mg TID LINDSEY Administration Glucagon 1 mg 02/20/22 17:05
[2022-02-24 16:24] LABS: Glucose Point of Care 143 mg/dl (65-105)
[2022-02-24 20:14] LABS: Estimated CRCL calculation 80 ml/min; Estimated Glomerular Filt Rate > 60
[2022-02-24 20:52] LABS: Glucose Point of Care 89 mg/dl (65-105)
[2022-02-24 23:07] LABS: Glucose Point of Care 187 mg/dl (65-105)
[2022-02-25] MEDS: HYDROcodone/acetaminophen (*CRX) 10-325 MG TABLET 1 TAB PO ×2 (03:45→08:26)
[2022-02-25 04:06] VITALS: BP 135/81; PULSE 75; RESP 18; TEMP 36.6; O2SAT 98
[2022-02-25 08:20] VITALS: BP 150/73; PULSE 82; RESP 20; TEMP 36.8; O2SAT 97
[2022-02-25 08:26] VITALS: PULSE 72
[2022-02-25] MEDS: SENNA/DOCUSATE SODIUM TABLET 1 TAB PO (08:26)
[2022-02-25] MEDS: GABAPENTIN 300 MG CAPSULE 600 MG BY MOUTH (08:26)
[2022-02-25] MEDS: PROPRANOLOL HCL 40 MG TABLET BY MOUTH (08:26)
[2022-02-25] MEDS: lisinopriL 20 MG TABLET BY MOUTH (08:26)
[2022-02-25] MEDS: ATORVASTATIN 20 MG TABLET BY MOUTH (08:26)
[2022-02-25 08:27] VITALS: PULSE 72
[2022-02-25 08:27] LABS: Glucose Point of Care 188 mg/dl (65-105)
[2022-02-25] MEDS: FENOFIBRATE 160 MG TABLET BY MOUTH (08:27)
[2022-02-25] MEDS: metFORMIN HCL 500 MG TABLET 1000 MG BY MOUTH (08:27)
[2022-02-25] MEDS: DOCUSATE SODIUM 100 MG CAPSULE PO (08:27)
[2022-02-25] MEDS: carvediloL 6.25 MG TABLET PO (08:27)
[2022-02-25] MEDS: INSULIN GLARGINE (*BKC) 100 UNITS/ML 70 UNITS SUB-Q (08:28)
[2022-02-25] MEDS: INSULIN ASPART (*BKC) 100 UNITS/ML 60 UNITS SUB-Q (08:29)
[2022-02-25] MEDS: INSULIN ASPART (*BKC) 100 UNITS/ML SUB-Q (08:29)
--- NOTE | 2022-02-25 08:51 | PM.DS ---
DS: Admitting Diagnosis Discharge Date 02/25/2022 Admitting Diagnosis lumbar stenosis and spondylosis DS: Discharge Diagnosis Discharge Diagnosis (1) Lumbar spondylosis: Code(s): M47.816 - Spondylosis without myelopathy or radiculopathy, lumbar region Status: Acute (2) Lumbar stenosis: Code(s): M48.061 - Spinal stenosis, lumbar region without neurogenic claudication Status: Acute DS: Summary Hospital Course Reason for hospitalization: Jesus was brought to the operating room on 02/20/2021 where a two-level posterior lumbar interbody fusion was performed without complication. The patient went to the floor postoperatively. Physical and occupational therapy were involved in his care. His drain and Mariee catheter were removed on postoperative day 2. He was slow to re-enter tn. His course was also complicated by somnolence which was investigated with a CT of his head and chest. Neither demonstrated any abnormalities. He had a low-grade fever but this improved with spirometry. On the day of his discharge he was eating, ambulating, emptying his bladder and his pain was under control with by mouth pain medicine. He was afebrile with stable vital signs. He was neurologically intact. He was therefore allowed to be discharged to home. Hospital Course: Jesus was taken the operating room on 02/20/2010 where a two-level posterior lumbar interbody fusion was performed without complication for the above pathology. On postoperative day to his Mariee catheter and drain removed. Physical and occupational therapy were involved in his care. He was slow to animated. His postoperative course was complicated by a low-grade fever and somnolence which was investigated with a head CT and chest CT for PE protocol. No abnormalities worth noting were found. At the day of his discharge he was eating, ambulating, emptying his bladder and his pain was under control with by mouth pain medicine. His wound remained clean dry and intact. He was afebrile with stable vital signs. He was neurologically intact. He was therefore allowed to be discharged home. Time Spent with Patient Time attestation: Total time spent providing and/or coordinating discharge services: DS: Data Data Completed and Pending Labs on day of discharge: Labs from last 24 hours 02/25/22 02/24/22 02/24/22 08:21 23:03 20:20 Creatinine Estim Creat Clear Calc Estimated GFR POC Capillary Glucose 188 H 187 H 89 02/24/22 02/24/22 02/24/22 20:02 16:16 11:31 Creatinine 1.10 Estim Creat Clear Calc 80 Estimated GFR > 60 POC Capillary Glucose 143 H 199 H Discharge Plan Discharge Attending physician on discharge: Manjit Cavanaugh Discharging Clinician: Manjit Cavanaugh Patient Disposition: Home, Self-Care Activity: may shower Diet: as tolerated and regular Wound Care Instructions: follow printed instructions and incision open to air Discharge Instructions: INSTRUCTIONS AFTER YOUR LUMBAR LAMINECTOMY/DECOMPRESSION/FORAMINOTOMY/DISCECTOMY Incisions may be closed with either: Steri-strips (let them wear off on their own). Surgical glue (let it peel off on its own). Sutures or chao (call the office for an appointment to have these removed). Keep the incision dry for the first three days after surgery. Never apply ointments or lotions to the incision. The incision should be checked daily. Notify the office if there is drainage, redness, or if you have fever with a temperature of over 100 degrees. After the third postop day, it is okay to shower. Let soap and water run over your incision. No soaking in a tub, hot tub, or pool for at least one month. You are encouraged to walk as much as comfortable, with assistance as needed. For example, it may be beneficial to walk short distances hourly during the waking hours and gradually increase walking during your recovery period. Fatigue can be common. Darvin
== END 2022-02-25 10:56 | disposition home or self-care (01) | DRG 460 ==
LOC: ANH2MED 14:37
PROVIDERS: Admitting Provider Neurological Surgery; PCP Family Medicine; Visit Provider Neurological Surgery
PROC: 0SG10AJ Fusion of 2 or more Lumbar Vertebral Joints with Interbody Fusion Device, Posterior Approach, Anterior Column, Open Approach (ICD-10-PCS; CPT 22612; principal; 2022-02-20 07:30)
DX: M48.061 Spinal stenosis, lumbar region without neurogenic claudication (principal); Z68.42 Body mass index [BMI] 45.0-49.9, adult; M47.816 Spondylosis without myelopathy or radiculopathy, lumbar region; E11.42 Type 2 diabetes mellitus with diabetic polyneuropathy; E66.01 Morbid (severe) obesity due to excess calories; I25.10 Atherosclerotic heart disease of native coronary artery without angina pectoris; I10 Essential (primary) hypertension; G47.33 Obstructive sleep apnea (adult) (pediatric); R50.9 Fever, unspecified; R40.0 Somnolence; E78.5 Hyperlipidemia, unspecified; Z79.4 Long term (current) use of insulin; Z79.84 Long term (current) use of oral hypoglycemic drugs; Z79.82 Long term (current) use of aspirin; Z95.5 Presence of coronary angioplasty implant and graft; Z98.1 Arthrodesis status
CPT/HCPCS: 36415; 70450; 71275; 82565; 82948; 85014; 85018; 86850; 86900; 86901; 93005; 97110; 97116; 97161; 97165; 97530; 97535; 99199; A9270; J0330; J0690; J1100; J1170; J1815; J2250; J2370; J2405; J2704; J2710; J3010; J3480; J7120; Q9967

== ENCOUNTER 2022-03-12 11:00 | Outpatient (CLI) | payer MEDICARE, OTHER, SELFPAY ==
--- NOTE | ~2022-03-12 | XR_ITS ---
EXAMINATION: XR lumbar spine 2-3V DATE: 03/12/2022 11:26 INDICATION: Postoperative changes of the lumbar spine TECHNIQUE: AP and lateral views of the lumbar spine are obtained. COMPARISON: None. FINDINGS: There are changes of posterior fusion from L3 through S1. Interbody devices are present at L3-4, L4-5, and L5-S1. The vertebral body heights are maintained. There is no fracture. Alignment is normal. There are laminectomy changes from L3 through S1. There are bridging osteophytes in the lower thoracic and upper lumbar spine, consistent with diffuse idiopathic skeletal hyperostosis (DISH). IMPRESSION: 1. Surgical changes of the lower lumbar spine without acute findings. Reviewed, dictated and finalized at location B.
== END 2022-03-12 11:01 | disposition home or self-care (01) ==
PROVIDERS: PCP Family Medicine; Visit Provider Neurological Surgery
DX: M54.50 Low back pain, unspecified (principal)
CPT/HCPCS: 72100

== ENCOUNTER 2022-07-16 08:40 | Outpatient (CLI) | payer MEDICARE, OTHER, SELFPAY ==
--- NOTE | ~2022-07-16 | XR_ITS ---
EXAM: XR lumbar spine 2-3V DATE: 07/16/2022 09:05 HISTORY: lumbar fusion X4 MONTHS AGO . COMPARISON: 03/12/2022. FINDINGS: Posterior fusion spanning L3-S1 with paired interbody devices at the intervening levels. 5 mm posterior displacement of one of the interbody devices at the L3-4 level. Remaining interbody dev ices, the posterior fusion rods, and the pedicle screws remain in stable position. No hardware fractu re or abnormal perihardware lucency. 5 nonrib-bearing lumbar-type vertebral bodies. Pedicles intact. 2 mm stable retrolisthesis at L2-3. Stable grade 2 anterolisthesis at L5-S1. Vertebral body heights p reserved. Disc spaces maintained. L3-S1 laminectomy changes. DISH changes. No fracture or dislocation . Hernia mesh anchors project over the midline lower abdomen. IMPRESSION: 5 mm posterior displacement of one of the 2 interbody devices at the L3-4 level. Results reported telephonically to Dr. Cavanaugh by Dr. Botello at 3:25 PM on 07/16/2022. Reviewed, dictated and finalized at location K. ED RUBBER TENDER IMPRESSION: 5 mm posterior displacement of one of the 2 interbody devices at the L3-4 level . Results reported telephonically to Dr. Cavanaugh by Dr. Botello at 3:25 PM on .
== END 2022-07-16 08:41 | disposition home or self-care (01) ==
PROVIDERS: PCP Family Medicine; Visit Provider Neurological Surgery
DX: M54.50 Low back pain, unspecified (principal); Z98.1 Arthrodesis status
CPT/HCPCS: 72100

== ENCOUNTER 2022-09-24 08:37 | Outpatient (CLI) | payer MEDICARE, OTHER, SELFPAY ==
--- NOTE | ~2022-09-24 | XR_ITS ---
AP view of the pelvis and AP and lateral views of the right hip Clinical history: Pain Findings: No acute fracture or dislocation is seen. Osseous alignment is anatomic. Bilateral hip and SI joint spaces are preserved. Lumbar spinal fixation hardware is present. Impression: No fracture or dislocation at the right hip. Lumbar spinal fixation hardware. Reviewed, dictated and finalized at [facility]. RTAINMENT MANAGER Impression: No fracture or dislocation at the right hip. Lumbar spinal fixation hardware.
--- NOTE | ~2022-09-24 | XR_ITS ---
EXAMINATION: XR lumbar spine 2-3V DATE: 09/24/2022 09:15 INDICATION: Pain status post L3-5 fusion TECHNIQUE: Anteroposterior and lateral views of the lumbar spine, and cone-down lateral view of the l umbosacral junction were obtained. COMPARISON: None. FINDINGS: There are changes of anterior and posterior fusion with laminectomy from L3 through S1. Aga in seen are 5 mm of posterior displacement of one of two interbody devices at L3-4. There is stable g rade 2 anterolisthesis of L5 on S1. No fracture is identified. There is mild loss of intervertebral d isc space height at L1-2 and L2-3. Small degenerative osteophytes project from the anterior endplates of multiple vertebral bodies. Surgical clips in the right upper quadrant are likely from prior sergio cystectomy. There appear to be changes of mesh ventral hernia repair. IMPRESSION: 1. Unchanged posterior displacement and one of two interbody devices at L3-4. 2. Mild/moderate lumbar spondylosis. Reviewed, dictated and finalized at location B. ITECTURE DRAFTER
== END 2022-09-24 08:38 | disposition home or self-care (01) ==
PROVIDERS: PCP Family Medicine; Visit Provider Neurological Surgery
DX: M54.50 Low back pain, unspecified (principal); M25.559 Pain in unspecified hip; M47.816 Spondylosis without myelopathy or radiculopathy, lumbar region; M96.1 Postlaminectomy syndrome, not elsewhere classified
CPT/HCPCS: 72100; 73502

== ENCOUNTER 2023-09-10 01:24 | Day surgery (SDC) | payer MEDICARE, OTHER, SELFPAY ==
[2023-09-03 11:17] VITALS: BMI 45.7
--- NOTE | 2023-09-03 11:29 | PC.NURSE ---
PRE-OP INSTRUCTIONS, PLEASE READ CAREFULLY Report to the Outpatient Waiting Room, entrance under the green pavilion located off [facility], at time _0730_ on date _09/10/23_. Planned Procedure Time: _0930_. PACK A SMALL OVERNIGHT BAG AND LEAVE IN THE CAR Time changes happen often and if your time is changed the preop area will call you the afternoon before. - You and your visitor will be asked to self-screen and do not enter if you have any COVID symptoms. - A mask is optional within the hospital at this time. -VISITING HOURS 8AM-8PM Patients may have clear liquids (water, carbonated beverages, clear teas, apple juice) until 3 hours prior to surgery (0630 AM) with a maximum of 20 ounces. - No food from midnight until time of surgery Take the following medications with a SIP of water the morning of surgery: _CARVEDILOL, GABAPENTIN, PROPRANOLOL, & PAIN PILL IF NEEDED_ DO NOT STOP ANY OF YOUR OTHER PRESCRIPTION MEDICATIONS PRIOR TO SURGERY ?EXCEPT THE FOLLOWING Medications to discontinue per DR. COY - _ASPIRIN & PLAVIX (CLOPIDOGREL) 7 DAYS PRIOR TO SURGERY, PT STATES LAST DOSE TAKEN WAS 09/02/23__ Please no make-up, nail ghanaian, hairspray, perfume, deodorant, or body powder the day of surgery. No jewelry (including any body piercings) or valuables the day of surgery, leave them at home. Please take a shower or bath the night before, or the morning of, surgery with an antibacterial soap. Wear comfortable, loose fitting clothing. - Jewelry must be removed prior to entering the operating room. Rings and piercings that are not removed may be cut off. - The hospital will not accept responsibility for valuables. - Please leave all valuables, including medications, at home the day of surgery. If you are going home after surgery, a licensed set key driver must drive you home. - NO public transportation without another adult if you receive anesthesia. - We recommend that an adult stay with you for 24 hours following discharge. - We also recommend that you do not drive, make important decision, drink alcoholic beverages, or take any drugs that were not prescribed by your health care provider for at least 24 hours after your discharge time. Follow any additional instructions given to you from your surgeon. If you or anyone in your household have experienced Covid symptoms in the past week, please notify your surgeon or the nurse liaison at the phone number below for possible testing. Telephone instructions given to _PATIENT_and asked if any additional questions and then verbalized understanding. Patient advised to call surgeon office or pre surgery nurse liaison [phone] if any additional questions.
--- NOTE | 2023-09-09 16:01 | WPDANESEPPF ---
Anes - Initial Pre Proc Eval Procedure: Operation Date: 09/10/23 09:30 Proposed Procedures p Placement of Dorsal Column Stimulator Lead and Generator - Manjit Cavanaugh MD Date/Time: 09/09/23 16:01 Surgeon: Manjit Cavanaugh MD Pre Op Diagnosis: chronic back & leg pain Patient Data Age: 68 Gender: M Height: 1.73 m Weight: 136.36 kg Allergies Allergy/AdvReac Type Severity Reaction Status Date / Time No Known Allergies Allergy Unknown Verified 09/03/23 11:11 Home Medications Medication Instructions Recorded Confirmed Type aspirin 81 mg capsule 81 mg PO QAM 02/08/22 09/10/23 History atorvastatin 20 mg tablet 1 tablet DAILY 02/08/22 09/10/23 History carvedilol 6.25 mg tablet 6.25 mg PO BID 02/08/22 09/10/23 History clopidogrel 75 mg tablet 1 tablet QAM 02/08/22 09/10/23 History fenofibrate 160 mg tablet 1 tablet QAM 02/08/22 09/10/23 History gabapentin 300 mg capsule 600 mg TID 02/08/22 09/10/23 History insulin aspart U-100 100 unit/mL See Rx Instructions .Route .COMPLEX 02/08/22 09/10/23 History (3 mL) subcutaneous pen (Novolog FlexPen U-100 Insulin aspart) insulin detemir U-100 100 unit/mL See Rx Instructions .Route .COMPLEX 02/08/22 09/10/23 History (3 mL) subcutaneous pen (Levemir FlexTouch U-100 Insulin) lisinopril 20 mg tablet 1 tablet QAM 02/08/22 09/10/23 History propranolol 20 mg tablet 2 tablet BID 02/08/22 09/10/23 History hydrocodone 5 mg-acetaminophen 325 1 - 2 tablet PO Q4H PRN pain #40 02/25/22 09/10/23 Rx mg tablet tabs semaglutide 0.25 mg or 0.5 mg (2 0.5 mg subcut WEEKLY 09/03/23 09/10/23 History mg/3 mL) subcutaneous pen injector (Ozempic) tamsulosin 0.4 mg capsule 0.8 mg PO BID 09/03/23 09/10/23 History Patient hx anesthesia problems: none Family hx anesthesia problems: none Results Review: All pre-operative results and documents have been reviewed as part of the pre-operative evaluation. [facility] Past Medical History Medical History CAD (coronary artery disease) Diabetes HTN (hypertension) Hyperlipidemia Morbid obesity with BMI of 45.0-49.9, adult RAMESH on CPAP Osteoarthritis Peripheral neuropathy Surgical History Surgical History (Updated 09/09/23 @ 16:01 by Joaquín Quinonez DO) History of coronary artery stent placement x6 Social History Social History (Updated 06/18/23 @ 14:39 by Madonna Walker) Smoking status: Never smoker Second hand tobacco smoke exposure: No Alcohol intake: never Substance use: never Substance use type: does not use Lack of Transportation: No Lack of Food: Never True Current Housing: I Have Housing Concerned About Future Housing: No Difficulty Paying Gas/Electric Bills: No Difficulty Paying for Meds: No Currently Unemployed: No Education: High School Diploma/GED Difficulty w/ Childcare or Family Care: No Living arrangements: with family Spiritual care concerns: No Anes - Eval Final PreProcedure Day of Procedure 09/09/23 16:01 Patient weight: morbidly obese Heart: regular rate and rhythm Lungs: clear to auscultation Airway: Mallampati scale class III Neurological: alert and oriented Last oral intake: >/= 8 hours ASA classification: III Emergent: no Anesthetic plan: proceed Anesthesia type and monitoring: general ETT and standard monitoring Results Review: All pre-operative results and documents have been reviewed as part of the pre-operative evaluation. Informed Consent: The patient's anesthetic plan and its attendant risks and benefits were discussed with the patient/family/POA. Questions were solicited and answers provided to the satisfaction of the patient/family/POA.
[2023-09-10] VITALS (15 sets, daily range): BP systolic 91–148; BP diastolic 44–83; PULSE 55–93; RESP 17–20; TEMP 36.1–36.9; O2SAT 67–99; BMI 47.5
--- NOTE | ~2023-09-10 | XR_ITS ---
EXAMINATION: XR fluoroscopy no charge DATE: 09/10/2023 11:21 INDICATION: Spinal stimulator placement TECHNIQUE: 15 fluoroscopic images of the lower thoracic and upper lumbar spine were obtained during p rocedure performed by Dr. Cavanaugh. Radiologist was not present for the imaging or procedure. The aliza unt of fluoroscopy time used during this procedure was 0.3 minutes. Total DAP was 1.0583 mGycm^2 COMPARISON: None. FINDINGS: Images demonstrate retractors on either side of a lucent soft tissue defect at the operative bed over lying the T10 and T11 vertebral bodies. Subsequent images demonstrate placement of a spinal stimulato r lead which courses over the lucent surgical defect with distal tip projecting over the central yanet l at the level of T8-T9. IMPRESSION: 1. Fluoroscopy utilized during placement of a lower thoracic spinal stimulator lead. See procedure no te for further detail. Reviewed, dictated and finalized at location A. [employer] WORKER IMPRESSION: 1. Fluoroscopy utilized during placement of a lower thoracic spinal stimulator lead. See procedure note for further detail.
[2023-09-10 07:50] LABS: Glucose Point of Care 169 mg/dl (65-105)
[2023-09-10] MEDS: LACTATED RINGERS 1,000 ML 30 ML IV CONT ×2 (08:00→11:26)
--- NOTE | 2023-09-10 09:30 | PM.IMHP ---
H&P: HPI History of Present Illness Date/Time: 09/10/23 09:30 Chief Complaint: Back and leg pain Narrative: Jesus is a 68-year-old gentleman with back and leg pain that responded to a successful dorsal column stimulator trial who presents now for permanent implantation. He has not changed appreciably since we last saw him. He does not have any bowel or bladder difficulty or other constitutional problems. He does not have any specific muscle group weakness of dermatomal numbness. Review of Systems Review of Systems: Patient denies shortness of breath, cough, fever, chills, nausea, vomiting, weight loss, weight gain, chest pain, dysuria. He has back and leg pain as above. The review of systems otherwise negative on 12 systems except as noted elsewhere. PMFSH Past Medical History Medical History CAD (coronary artery disease) Diabetes HTN (hypertension) Hyperlipidemia Morbid obesity with BMI of 45.0-49.9, adult RAMESH on CPAP Osteoarthritis Peripheral neuropathy Surgical History Surgical History (Updated 09/09/23 @ 16:01 by Joaquín Quinonez DO) History of coronary artery stent placement x6 Social History Social History (Updated 06/18/23 @ 14:39 by Madonna Walker) Smoking status: Never smoker Second hand tobacco smoke exposure: No Alcohol intake: never Substance use: never Substance use type: does not use Lack of Transportation: No Lack of Food: Never True Current Housing: I Have Housing Concerned About Future Housing: No Difficulty Paying Gas/Electric Bills: No Difficulty Paying for Meds: No Currently Unemployed: No Education: High School Diploma/GED Difficulty w/ Childcare or Family Care: No Living arrangements: with family Spiritual care concerns: No Meds Home Medications and Allergies Home Medications Medication Instructions Recorded Confirmed Type aspirin 81 mg capsule 81 mg PO QAM 02/08/22 09/10/23 History atorvastatin 20 mg tablet 1 tablet DAILY 02/08/22 09/10/23 History carvedilol 6.25 mg tablet 6.25 mg PO BID 02/08/22 09/10/23 History clopidogrel 75 mg tablet 1 tablet QAM 02/08/22 09/10/23 History fenofibrate 160 mg tablet 1 tablet QAM 02/08/22 09/10/23 History gabapentin 300 mg capsule 600 mg TID 02/08/22 09/10/23 History insulin aspart U-100 100 unit/mL See Rx Instructions .Route .COMPLEX 02/08/22 09/10/23 History (3 mL) subcutaneous pen (Novolog FlexPen U-100 Insulin aspart) insulin detemir U-100 100 unit/mL See Rx Instructions .Route .COMPLEX 02/08/22 09/10/23 History (3 mL) subcutaneous pen (Levemir FlexTouch U-100 Insulin) lisinopril 20 mg tablet 1 tablet QAM 02/08/22 09/10/23 History propranolol 20 mg tablet 2 tablet BID 02/08/22 09/10/23 History hydrocodone 5 mg-acetaminophen 325 1 - 2 tablet PO Q4H PRN pain #40 02/25/22 09/10/23 Rx mg tablet tabs semaglutide 0.25 mg or 0.5 mg (2 0.5 mg subcut WEEKLY 09/03/23 09/10/23 History mg/3 mL) subcutaneous pen injector (Ozempic) tamsulosin 0.4 mg capsule 0.8 mg PO BID 09/03/23 09/10/23 History Allergies Allergy/AdvReac Type Severity Reaction Status Date / Time No Known Allergies Allergy Unknown Verified 09/03/23 11:11 Vital Signs Vital Signs - 24 hr 09/10/23 08:05 Temperature 97.4 F L Pulse Rate 63 Respiratory Rate 18 Blood Pressure 148/67 H Pulse Oximetry 95 Oxygen Delivery Room Air Assessment and Plan Assessment and plan (1) Pseudoarthrosis of lumbar spine: Code(s): S32.009K - Unspecified fracture of unspecified lumbar vertebra, subsequent encounter for fracture with nonunion Status: Acute (2) Lumbar spondylosis: Code(s): M47.816 - Spondylosis without myelopathy or radiculopathy, lumbar region Status: Acute (3) Lumbar stenosis: Code(s): M48.061 - Spinal stenosis, lumbar region without neurogenic claudication Status: Acute Plan Jesus is a 68-year-old gentleman w
--- NOTE | 2023-09-10 09:34 | WPDHPUPDATE1 ---
History and Physical Update Update Date/Time: 09/10/23 09:34 History and Physical has been reviewed, including an updated exam of the patient. There are NO changes in the patient's condition. Risks, benefits, and alternatives have been discussed and questions answered. Patient agrees to proceed with procedure.
[2023-09-10] MEDS: ceFAZolin 3 GM/D5W 100 ML 100 ML IVPB (09:44)
[2023-09-10] MEDS: LIDO 1%/EPINEPHRINE 1:100,000 50 ML VIAL 10 ML INFILTRATE (10:18)
[2023-09-10] MEDS: VANCOMYCIN HCL 1,000 MG VIAL 500 MG TOPICAL (10:19)
--- NOTE | 2023-09-10 11:16 | P.OP_ITS ---
Procedure Note - Detailed Date of Procedure 09/10/23 Pre-op Diagnosis chronic back & leg pain Post-op Diagnosis Same Procedure Performed Placement of dorsal column stimulator lead and generator Surgeon Manjit Cavanaugh MD Anesthesia General Description of Procedure Jesus was brought to the operating room in the supine position, was sedated, intubated and placed in general anesthesia in routine fashion. He was then turned into the prone position on a Parish frame. The operation was back was examined, marked incision, prepped and draped in routine sterile fashion. Incision was marked in the midline in the thoracic spine based on the T10 pedicles in longitudinally in the left flank. These areas were injected with 0.5% lidocaine with [id number] epinephrine. Intravenous antibiotics given prior to incision. Incision was made with a 10 blade scalpel down to the thoracic fashion into the subcutaneous tissues at the flank. A pocket was created 1 cm deep in the tissue of the flank using curved Canas scissors and toothed forceps. At the thoracic incision subperiosteal dissection of the muscle soft tissue away from spinous process and lamina was performed with a subperiosteal elevator and Bovie cautery. A verifying x-rays obtained to verify the level of operation. Laminectomies were performed at T8-9 and T9-10 using a Le[place]ell rongeur, Kerrison punches and curved curettes until a short wide area the dura was uncovered. The dorsal epidural space was cannulated with a lead trial. The lead was then placed into the dorsal epidural space until it was confirmed to be behind the T7 and T8 vertebral bodies in the midline. Tension relief loop were placed in both the wires. [place] was attached 1 wire which was attached to the superior spinous process using a 3-0 Prolene suture. The wires were then buried to the flank incision where they were inserted into the generator slots and secured the using the small screwdriver for that purpose. Impedance testing was carried out to confirm good connectivity which was confirmed. M the generator was then placed in the pocket with excess wire coiled up underneath that and with vancomycin impregnated pellets around the device. This was done after copious irrigation of both incisions with bacitracin irrigation. The wounds were then closed in layered fashion with 2-0 Vicryl interrupted sutures in the thoracic fascia and Gillian's layer. 3-0 Vicryl buried interrupted sutures were placed in the dermis and the skin was closed with a running 4-0 Monocryl subcuticular stitch and dressed with Dermabond. The patient was allowed to wake up in the operating room was taken to the recovery room in stable condition. There were no immediate complications of this operation. All counts were reported correct in the case. Blood loss was 50 cc. Patient is neurologically at his baseline postoperatively. CPT codes: 41796, 52660 Estimated Blood Loss 50 IV Fluids 1,000 Complications None Condition Stable Disposition PACU [facility] Billing Surgery - Charge Forward: Surgery Billing
[2023-09-10 11:35] LABS: Glucose Point of Care 232 mg/dl (65-105)
[2023-09-10] MEDS: INSULIN HUMAN REGULAR (*BKC) 100 UNITS/ML IV PUSH (11:49)
[2023-09-10 12:39] LABS: Glucose Point of Care 231 mg/dl (65-105)
--- NOTE | 2023-09-10 13:00 | ADMGEN ---
This patient, Jesus Early, was admitted to Medical Room 248-. Patient/family oriented to hospital policies and general routines including ID bracelet, bed and alarms, visiting hours, pain management, procedures, bathroom and other care routines, personal items, smoking policy, room service/diet, and visiting hours. Information on how to activate the Rapid Response Team has been discussed. Patient/Family are encouraged to report perceived risks to care and to ask questions if they do not understand what they are told or what they should do.
[2023-09-10] MEDS: GABAPENTIN 300 MG CAPSULE 600 MG BY MOUTH ×2 (13:35→16:11)
[2023-09-10] MEDS: KCL 20 MEQ/D5/0.45% SOD CHL 1,000 ML 100 ML IV CONT (13:37)
[2023-09-10] MEDS: HYDROcodone/acetaminophen (*CRX) 10-325 MG TABLET 1 TAB PO ×2 (13:46→20:04)
[2023-09-10] MEDS: TAMSULOSIN HCL 0.4 MG CAPSULE 0.8 MG PO (16:11)
[2023-09-10] MEDS: DOCUSATE SODIUM 100 MG CAPSULE PO (20:00)
[2023-09-11] VITALS: PULSE 68
[2023-09-11] MEDS: KCL 20 MEQ/D5/0.45% SOD CHL 1,000 ML 100 ML IV CONT (00:32)
[2023-09-11 03:48] VITALS: BP 143/64; PULSE 81; RESP 20; TEMP 36.1; O2SAT 95
[2023-09-11] MEDS: HYDROcodone/acetaminophen (*CRX) 5-325 MG TABLET 1 TAB PO (06:35)
--- NOTE | 2023-09-11 09:28 | WPDANESPN ---
Anes - Prog Note Post-Op Date/Time: 09/11/23 09:28 Cardiovascular status: normal Respiratory status: normal Airway patency: baseline Mental status: baseline Post-Op hydration status: normal Vital Signs: Last Vital Signs Temp 36.1 C L 09/11/23 03:48 Pulse 81 09/11/23 03:48 Resp 20 09/11/23 03:48 BP 143/64 H 09/11/23 03:48 Pulse Ox 95 09/11/23 03:48 O2 Del Method CPAP 09/10/23 23:10 O2 Flow Rate 8 09/10/23 11:55 Pain Score (VAS): 3/10 I/O: Intake & Output 09/10/23 09/11/23 09/11/23 23:59 07:59 15:59 Intake Total 590 1810 480 Output Total 900 600 Balance -310 1210 480 09/10/23 09/10/23 11:32 12:36 POC Capillary Glucose 232 H 231 H Post-procedural complaints: none Patient Feedback: Patient satisfied with anesthetic care.
[2023-09-11] MEDS: carvediloL 6.25 MG TABLET PO (09:38)
[2023-09-11] MEDS: ATORVASTATIN 20 MG TABLET BY MOUTH (09:38)
[2023-09-11] MEDS: CYCLOBENZAPRINE HCL 10 MG TABLET PO (09:38)
[2023-09-11] MEDS: GABAPENTIN 300 MG CAPSULE 600 MG BY MOUTH ×2 (09:38→13:10)
[2023-09-11] MEDS: TAMSULOSIN HCL 0.4 MG CAPSULE 0.8 MG PO (09:38)
[2023-09-11] MEDS: DOCUSATE SODIUM 100 MG CAPSULE PO (09:38)
[2023-09-11] MEDS: FENOFIBRATE 160 MG TABLET BY MOUTH (09:38)
[2023-09-11 12:10] VITALS: BP 156/70; PULSE 65; RESP 16; TEMP 36.6; O2SAT 97
--- NOTE | 2023-09-11 15:00 | WPDNEUROSGPN ---
Progress Note: A&P Assessment and Plan (1) Pseudoarthrosis of lumbar spine: Code(s): S32.009K - Unspecified fracture of unspecified lumbar vertebra, subsequent encounter for fracture with nonunion Status: Acute (2) Lumbar spondylosis: Code(s): M47.816 - Spondylosis without myelopathy or radiculopathy, lumbar region Status: Acute Plan s/p placement of spinal cord stimulator on 09/10 Plan: -Discharge home today -Restart ASA/Plavix in 1 week -Restrictions and wound care reviewed at bedside -Follow up with Dr. Cavanaugh on September 24 Subjective Date/time seen: 09/11/23 15:00 Interval history: Doing well with some mild incisional pain which is adequately controlled with medication. Denies any radicular pain or paresthesias in the legs. Ambulated in halls and on stairs. Tolerating PO. Would like to go home today. Review of Systems Review of Systems: All systems reviewed & are unremarkable except as noted in HPI and below Exam Narrative: Incisions c/d/i Full strength in lower extremities Ambulating independently in room Sensation intact to light touch AOx4 Objective Data Vital Signs Vital Signs: Vital Signs - 24 hr 09/10/23 15:55 09/10/23 19:39 09/10/23 20:00 Temperature 98.4 F Pulse Rate 69 Respiratory Rate 20 Blood Pressure 120/63 Pulse Oximetry 93 Oxygen Delivery Room Air Room Air 09/10/23 23:48 09/11/23 00:00 09/10/23 23:10 Temperature 98.0 F Pulse Rate 93 68 Respiratory Rate 20 17 Blood Pressure 115/54 L Pulse Oximetry 67 L Oxygen Delivery CPAP 09/11/23 03:48 09/11/23 12:10 09/11/23 08:00 Temperature 97.0 F L 97.9 F Pulse Rate 81 65 Respiratory Rate 20 16 Blood Pressure 143/64 H 156/70 H Pulse Oximetry 95 97 Oxygen Delivery Room Air Intake/Output Intake/Output: Intake & Output 09/08/23 09/09/23 09/10/23 09/11/23 23:59 23:59 23:59 23:59 Intake Total 2490 2530 Output Total 1200 600 Balance 1290 1930 Meds/Results Medications: Active Medications Generic Name Dose Route Start Last Admin Trade Name Freq PRN Reason Stop Dose Admin Hydrocodone Bitart/Acetaminophen 1 tab 09/10/23 12:48 09/11/23 06:35 Hydrocodone/Acetaminophen (*Crx) 5-325 Mg Tablet PO 1 tab Q4H PRN Administration Mild Pain (1-3) Hydrocodone Bitart/Acetaminophen 1 tab 09/10/23 12:48 09/10/23 20:04 Hydrocodone/Acetaminophen (*Crx) 10-325 Mg Tablet PO 1 tab Q4H PRN Administration Moderate Pain (4-6) Al Hydrox/Mg Hydrox/Simethicone 20 ml 09/10/23 12:48 Mag Hydrox/Al Hydrox/Simeth 30 Ml Udc PO Q4H PRN Indigestion/Heartburn Atorvastatin Calcium 20 mg 09/11/23 09:00 09/11/23 09:38 Atorvastatin 20 Mg Tablet BY MOUTH 20 mg DAILY LINDSEY Administration Bisacodyl 10 mg 09/10/23 12:48 Bisacodyl 10 Mg Suppository RECTAL DAILY PRN Constipation Carvedilol 6.25 mg 09/10/23 17:00 09/11/23 09:38 Carvedilol 6.25 Mg Tablet PO 6.25 mg BIDWM LINDSEY Administration Cyclobenzaprine HCl 10 mg 09/10/23 12:48 09/11/23 09:38 Cyclobenzaprine Hcl 10 Mg Tablet PO 10 mg TID PRN Administration Muscle Spasms Docusate Sodium 100 mg 09/10/23 21:00 09/11/23 09:38 Docusate Sodium 100 Mg Capsule PO 100 mg Q12HR LINDSEY Administration Fenofibrate 160 mg 09/11/23 09:00 09/11/23 09:38 Fenofibrate 160 Mg Tablet BY MOUTH 160 mg QAM LINDSEY Administration Gabapentin 600 mg 09/10/23 13:00 09/11/23 13:10 Gabapentin 300 Mg Capsule BY MOUTH 600 mg TID LINDSEY Administration Miscellaneous Information 0 each 09/10/23 00:01 09/10/23 15:28 Semaglutide [Ozempic] 0.25 Mg Or 0.5 Mg (2 Mg/3 Ml) Pen Non Formulary XX 10/10/23 00:00 Not Given CLARIFY LINDSEY Morphine Sulfate 4 mg 09/10/23 12:48 Morphine Sulfate (*Crx) 4 Mg/Ml Inj IV PUSH Q2H PRN Pain Rated 7-10 Non-Formulary Medication 0.5 mg 09/17/23 09:00 Semaglutide [Ozempic] SUB-Q 10/17/23 08:59
== END 2023-09-11 15:32 | disposition home or self-care (01) ==
LOC: ANHSURGERY 07:13 → ANH2MED 12:51
PROVIDERS: PCP Family Medicine; Visit Provider Neurological Surgery
PROC: (CPT 63655; principal; 2023-09-10 09:30)
DX: S32.009K Unspecified fracture of unspecified lumbar vertebra, subsequent encounter for fracture with nonunion (principal); M47.816 Spondylosis without myelopathy or radiculopathy, lumbar region; M48.061 Spinal stenosis, lumbar region without neurogenic claudication; G89.29 Other chronic pain; I25.10 Atherosclerotic heart disease of native coronary artery without angina pectoris; E78.5 Hyperlipidemia, unspecified; G47.33 Obstructive sleep apnea (adult) (pediatric); E11.42 Type 2 diabetes mellitus with diabetic polyneuropathy; I10 Essential (primary) hypertension; E66.01 Morbid (severe) obesity due to excess calories; Z68.42 Body mass index [BMI] 45.0-49.9, adult; Z95.5 Presence of coronary angioplasty implant and graft; Z79.02 Long term (current) use of antithrombotics/antiplatelets; Z79.82 Long term (current) use of aspirin; Z79.4 Long term (current) use of insulin; Z79.85 Long-term (current) use of injectable non-insulin antidiabetic drugs; X58.XXXD Exposure to other specified factors, subsequent encounter
CPT/HCPCS: 63655; 63685; 82948; 97161; 97165; 97530; 97535; 99199; A9270; C1713; J0330; J0690; J1100; J1815; J2405; J2704; J3010; J3370; J3480; J7120